=== PATIENT | male | born 1990 | race Caucasian/White ===

== ENCOUNTER 2019-01-12 17:57 | Emergency (ER) | payer SELFPAY ==
[~2019-01-12] VITALS: Ht 167.6 cm; Wt 70.0 kg
[2019-01-12 21:17] VITALS: BP 128/73
[2019-01-12] MEDS ORDERED: ValACYclovir HCL 500 MG TABLET PO ONE (21:30)
[2019-01-12] MEDS ORDERED: PredniSONE 20 MG TABLET PO ONE (21:30)
== END 2019-01-12 22:23 | disposition home or self-care (01) ==
LOC: EMS 17:57
DX: G51.0 Bell's palsy (principal); Z87.891 Personal history of nicotine dependence
CPT/HCPCS: 99283; J7512